=== PATIENT | male | born 1985 | race Caucasian/White ===

== ENCOUNTER → 2019-09-10 | Outpatient (REF) | payer OTHER ==
[2019-09-10 17:09] LABS: ALT/SGPT 44 U/L (12-78); BILIRUBIN,TOTAL 0.6 MG/DL (0.2-1.0); BLOOD UREA NITROGEN 18 MG/DL (7-18); CALCIUM LEVEL 9.4 MG/DL (8.5-10.1); CARBON DIOXIDE LEVEL 30 MEQ/L (21-32); CHLORIDE LEVEL 103 MEQ/L (98-107); CHOLESTEROL LEVEL 209 MG/DL (<200); CREATININE FOR GFR 1.06 MG/DL (0.70-1.30); GLOMERULAR FILTRATION RATE > 60.0 (>60); GLUCOSE, FASTING 90 MG/DL (70-100); HDL CHOLESTEROL 50 MG/DL (>40); LDL CHOLESTEROL 124 MG/DL (<100); NON-HDL-C 159 MG/DL; POTASSIUM SERUM 4.1 MEQ/L (3.5-5.1); SODIUM LEVEL 139 MEQ/L (136-145); TOTAL PROTEIN 7.6 GM/DL (6.4-8.2); TRIGLYCERIDES LEVEL 175 MG/DL (<150)
== END ==
LOC: M SFHCCLAY 10:50
PROVIDERS: ATTEND Family Medicine
DX: Z00.00 Encounter for general adult medical examination without abnormal findings (principal); Z82.49 Family history of ischemic heart disease and other diseases of the circulatory system; Z13.220 Encounter for screening for lipoid disorders

== ENCOUNTER → 2020-06-09 | Outpatient (REF) | payer OTHER | LOC: M SFHCCLAY 10:54 | PROVIDERS: ATTEND Family Medicine | DX: R23.9 Unspecified skin changes (principal) ==

== ENCOUNTER → 2020-06-09 | Outpatient (REF) | payer OTHER | LOC: M LAB REF 19:11 | PROVIDERS: ATTEND Family Medicine | DX: R23.9 Unspecified skin changes (principal) ==

== ENCOUNTER → 2022-01-19 | Outpatient (REF) | payer OTHER ==
[2022-01-19 18:06] LABS: HEMATOCRIT 44.5 % (42.0-52.0); HEMOGLOBIN 14.7 g/dl (13.5-17.5); MEAN CORPUSCULAR HEMOGLOBIN 29.7 pg (27.0-33.0); MEAN CORPUSCULAR VOLUME 89.9 fl (80.0-96.0); PLATELET COUNT, AUTOMATED 302 10^3/uL (150-450); RED BLOOD COUNT 4.95 10^6/uL (4.30-6.10); WHITE BLOOD COUNT 7.7 10^3/uL (4.0-10.0)
[2022-01-19 19:10] LABS: BLOOD UREA NITROGEN 20 MG/DL (7-18); CALCIUM LEVEL 9.4 MG/DL (8.5-10.1); CARBON DIOXIDE LEVEL 27 MEQ/L (21-32); CHLORIDE LEVEL 106 MEQ/L (98-107); CHOLESTEROL LEVEL 181 MG/DL (<200); CHOLESTEROL RISK RATIO 3.934 (<5); CREATININE FOR GFR 1.03 MG/DL (0.70-1.30); FREE T4 1.11 NG/DL (0.76-1.46); GLOMERULAR FILTRATION RATE > 60.0 (>60); GLUCOSE, FASTING 102 MG/DL (70-100); HDL CHOLESTEROL 46 MG/DL (>40); LDL CHOLESTEROL 97 MG/DL (<100); NON-HDL-C 135 MG/DL; POTASSIUM SERUM 4.4 MEQ/L (3.5-5.1); SODIUM LEVEL 138 MEQ/L (136-145); THYROID STIMULATING HORMONE 0.538 uIU/ML (0.358-3.740); TRIGLYCERIDES LEVEL 189 MG/DL (<150)
== END ==
LOC: M SFHCCLAY 10:43
PROVIDERS: ATTEND Nurse Practitioner Family
DX: Z00.00 Encounter for general adult medical examination without abnormal findings (principal); F32.0 Major depressive disorder, single episode, mild

== ENCOUNTER → 2023-01-31 | Outpatient (REF) | payer OTHER ==
[2023-01-31 17:58] LABS: ALBUMIN 4.2 G/DL (3.2-5.2); ALKALINE PHOSPHATASE 56 U/L (46-116); ALT/SGPT 39 U/L (7.0-40); AST/SGOT 23 U/L (<34); BILIRUBIN,TOTAL 0.8 MG/DL (0.3-1.2); BLOOD UREA NITROGEN 18 MG/DL (9-23); CALCIUM LEVEL 9.3 MG/DL (8.5-10.1); CARBON DIOXIDE LEVEL 28 MMOL/L (20-31); CHLORIDE LEVEL 104 MMOL/L (98-107); CREATININE FOR GFR 1.11 MG/DL (0.70-1.30); FREE T4 1.53 NG/DL (0.89-1.76); GLOMERULAR FILTRATION RATE > 60.0 (>60); GLUCOSE, FASTING 101 MG/DL (60-100); POTASSIUM SERUM 4.7 MMOL/L (3.5-5.1); SODIUM LEVEL 139 MMOL/L (136-145); THYROID STIMULATING HORMONE 0.483 uIU/ML (0.55-4.78); TOTAL PROTEIN 7.4 G/DL (5.7-8.2)
== END ==
LOC: M SFHCCLAY 10:34
PROVIDERS: ATTEND Nurse Practitioner Family
DX: F32.0 Major depressive disorder, single episode, mild (principal)

== ENCOUNTER → 2023-03-28 | Outpatient (REF) | payer OTHER ==
[2023-03-28 17:41] LABS: FREE T4 1.44 NG/DL (0.89-1.76); THYROID STIMULATING HORMONE 0.557 uIU/ML (0.55-4.78)
== END ==
LOC: M SFHCCLAY 10:03
PROVIDERS: ATTEND Nurse Practitioner Family
DX: R79.89 Other specified abnormal findings of blood chemistry (principal)

== ENCOUNTER → 2025-02-20 | Outpatient (REF) | payer OTHER ==
[2025-02-20 17:28] LABS: ALT/SGPT 36 U/L (7.0-40); AST/SGOT 22 U/L (<34); CALCIUM LEVEL 8.9 MG/DL (8.5-10.1); CARBON DIOXIDE LEVEL 28 MMOL/L (20-31); CHLORIDE LEVEL 105 MMOL/L (98-107); CHOLESTEROL LEVEL 230 MG/DL (<200); CHOLESTEROL RISK RATIO 4.12 (<5); CREATININE FOR GFR 1.05 MG/DL (0.70-1.30); GLOMERULAR FILTRATION RATE > 90.0 (>60); LDL CHOLESTEROL 152.1 MG/DL (<100); NON-HDL-C 174.3 MG/DL; POTASSIUM SERUM 4.4 MMOL/L (3.5-5.1); SODIUM LEVEL 142 MMOL/L (136-145); TRIGLYCERIDES LEVEL 111 MG/DL (<150)
== END ==
LOC: M SFHCCLAY 09:41
PROVIDERS: ATTEND Nurse Practitioner Family
DX: F32.0 Major depressive disorder, single episode, mild (principal); Z13.220 Encounter for screening for lipoid disorders